=== PATIENT | female | born 1990 | race Caucasian/White ===

== ENCOUNTER 2017-12-07 00:12 | Emergency (ER) | payer OTHER ==
[2017-12-07 00:20] VITALS: BP 107/58; PULSE 68; TEMP 98.9; BMI 24.7
--- NOTE | 2017-12-07 00:20 | PDOC ---
History of Present Illness - General Chief Complaint: Respiratory Stated Complaint: "I HAVE A SINUS INFECTION" Time Seen by Provider: 12/07/17 00:20 History Source: Patient Exam Limitations: No Limitations - History of Present Illness Initial Comments: 12/07/17 00:29 This is a 27 her female comes in complaining of pain in her sinuses. Patient has a history of sinusitis in the past. She is also complaining of some ear pain and mild sore throat. Patient says she's had a low-grade fever but was afebrile here in the emergency room. Patient said that she has had some yellowish discharge from her sinuses morning. Patient denies any neck stiffness headache or neurological complaints. PAST MEDICAL HISTORY: no significant history PAST SURGICAL HISTORY: no significant history FAMILY HISTORY: no pertinant history SOCIAL HISTORY: Pt lives with family and is employed. MEDICATIONS: reviewed ALLERGIES: As per nursing notes Review of Systems General: No fevers or chills, no weakness, no weight loss HEENT: No change in vision. No sore throat,. No ear pain CardioVascular: No chest pain or shortness of breath Respiratory:No cough, or wheezing. Gastrointestinal: no nausea, vomitting, diarrhea or constipation, No rectal bleeding Genitourinary: No dysuria, hematuria, or frequency Musculoskeletal: No joint or muscle pain or swelling Neurologic: No headache, vertigo, dizziness or loss of consciousness Psychiatric: nor depression Skin: No rashes or easy bruising Endocrine: no increased thirst or abnormal weight change Allergic: no skin or latex allergy All other systems reviewed and normal GENERAL: The patient is awake, alert, and fully oriented, in no acute distress. HEENT: There is some tenderness on palpation of the maxillary sinuses, there is some mild erythema posterior oropharynx. There is no lymphadenopathy. Neck is supple EXTREMITIES: Normal range of motion, no edema. NEUROLOGICAL: Normal speech, normal gait. grossly intact PSYCH: Normal mood, normal affect. SKIN: Warm, Dry, normal turgor, no rashes or lesions noted. Assessment and plan: This is 27 her female comes in complaining of symptoms suggestive of acute acute sinusitis. Patient given azithromycin and told to get [id number] decongestants and a netti pot. Patient discharged home Past History - Past Medical History Allergies/Adverse Reactions: Allergies Allergy/AdvReac Type Severity Reaction Status Date / Time No Known Allergies Allergy Verified 02/02/13 23:49 Home Medications: Ambulatory Orders Azithromycin 250 mg PO DAILY #4 tablet 12/07/17 COPD: No Disorders: Yes (PCO,ENDOMETRISOS) - Immunization History Td Vaccination: Yes Immunization Up to Date: No - Suicide/Smoking/Psychosocial Hx Smoking Status: Yes Smoking History: Unknown if ever smoked Have you smoked in the past 12 months: Yes Number of Cigarettes Smoked Daily: 12 If you are a former smoker, when did you quit?: 03/24/16 Information on smoking cessation initiated: Yes 'Breaking Loose' booklet given: 12/07/17 Hx Alcohol Use: No Drug/Substance Use Hx: No Substance Use Type: None *Physical Exam - Vital Signs Last Vital Signs Temp Pulse Resp BP Pulse Ox 98.9 F 68 14 107/58 99 12/07/17 00:16 12/07/17 00:16 12/07/17 00:16 12/07/17 00:16 12/07/17 00:16 *DC/Admit/Observation/Transfer Diagnosis at time of Disposition: Sinusitis Qualifiers: Sinusitis location: maxillary Chronicity: acute Recurrence: recurrent Qualified Code(s): J01.01 - Acute recurrent maxillary sinusitis - Discharge Dispostion Disposition: HOME Condition at time of disposition: Good Decision to Admit order: No - Prescriptions Prescriptions: Azithromycin 250 mg PO DAILY #4 tablet - Referrals - Patient Instructions Additional Instructions: Tylenol or Motrin as needed for pain.. Get the prescription for azithromycin filled and take one tablet a day for the next 4 days you're given the first tablet today take your next tablet tomorrow night Purchase an [id number] decongestant as well as a netti pot and use as directed on the box . Return to the emergency department immediately with ANY new, persistent or worsening symptoms. Continue any medications as previously prescribed by your physician. You should follow up with your primary doctor as soon as possible regarding today's emergency department visit. . Please make sure your doctor reviews the results of your emergency evaluation. Thank you for coming to the Emergency Department today for your care. It was a pleasure to see you today. Please note that your evaluation is INCOMPLETE until you follow-up with your doctor. - Post Discharge Activity
[2017-12-07] MEDS ORDERED: AZITHROMYCIN 500 MG TABLET PO ONE (00:23)
[2017-12-07] MEDS ORDERED: AZITHROMYCIN 250 MG TABLET ONE (00:38)
== END 2017-12-07 00:36 | disposition home or self-care (01) ==
LOC: FER 00:12
DX: J01.01 Acute recurrent maxillary sinusitis (principal); F17.210 Nicotine dependence, cigarettes, uncomplicated
CPT/HCPCS: 99283-25

== ENCOUNTER 2018-12-25 00:05 | Emergency (ER) | payer OTHER | END 2018-12-25 01:01 | disposition home or self-care (01) | LOC: FER 00:05 ==

== ENCOUNTER 2019-03-05 01:16 | Emergency (ER) | payer OTHER ==
[2019-03-05 01:28] VITALS: BP 101/68; PULSE 85; TEMP 98.3; BMI 23.8
--- NOTE | 2019-03-05 01:55 | PDOC ---
History of Present Illness - General Chief Complaint: Pain Stated Complaint: TIRED,HEART RACING Time Seen by Provider: 03/05/19 01:45 History Source: Patient Exam Limitations: No Limitations - History of Present Illness Initial Comments: 03/05/19 01:49 This is a 29-year-old female who comes in complaining of fatigue and palpitations. Patient has had symptoms times several months. Patient denies any cough, congestion, chest pain, nausea vomiting or diarrhea. Patient is otherwise healthy and takes no medications. Allergies: as per nursing notes Past Medical History: none Social history: Lives with family. No smoking. No alcohol. No illicit drugs. Surgical history: None General: No fevers or chills, no weakness, no weight loss , + fatigue HEENT: No change in vision. No sore throat,. No ear pain CardioVascular: no chest discomfort. No shortness of breath, + palpitations Respiratory:No cough, or wheezing. Gastrointestinal: no nausea, vomiting, diarrhea or constipation, No rectal bleeding Genitourinary: No dysuria, hematuria, or frequency Musculoskeletal: No joint or muscle pain or swelling Neurologic: No headache, vertigo, dizziness or loss of consciousness Psychiatric: nor depression Skin: No rashes or easy bruising Endocrine: no increased thirst or abnormal weight change Allergic: no skin or latex allergy All other systems reviewed and normal Exam: General: Well-nourished well-developed individual, no acute distress HEENT: Throat: Normal, tonsils normal, no erythema or exudate Neck: Supple, no meningeal signs, no lymphadenopathy Eyes::Pupils equal reactive and round, extraocular motion intact Chest: Nontender to palpation Cardiac: S1-S2 normal, regular rate and rhythm, no murmurs rubs or gallops Respiratory: Lungs clear to auscultation bilateral Abdomen: Soft, nondistended, normal bowel sounds, there is no tenderness on palpation diffusely Extremities: Warm, dry, no cyanosis, clubbing, or edema Skin: No rashes Neuro: Alert and oriented x3, CN II - XII intact, nonfocal exam with normal strength, normal sensation, normal reflexes, normal gait, Psych: Normal mood and affect Assessment and plan: This is a 21-year-old female palpitations and fatigue. Patient had an EKG done that was normal sinus rhythm at a rate of [address] -T wave changes. Patient was reassured and discharged will follow-up with her primary care doctor. Past History - Past Medical History Allergies/Adverse Reactions: Allergies Allergy/AdvReac Type Severity Reaction Status Date / Time No Known Allergies Allergy Verified 03/05/19 01:19 Home Medications: Ambulatory Orders NK [No Known Home Medication] 03/05/19 COPD: No Disorders: Yes (PCO,ENDOMETRISOS) - Immunization History Td Vaccination: Yes Immunization Up to Date: No - Suicide/Smoking/Psychosocial Hx Smoking Status: Yes Smoking History: Current every day smoker Have you smoked in the past 12 months: Yes Number of Cigarettes Smoked Daily: 20 If you are a former smoker, when did you quit?: 03/24/16 Information on smoking cessation initiated: Yes 'Breaking Loose' booklet given: 12/25/18 Hx Alcohol Use: Yes (DAILY DRINK) Drug/Substance Use Hx: No Substance Use Type: None *Physical Exam - Vital Signs Last Vital Signs Temp Pulse Resp BP Pulse Ox 98.3 F 85 16 101/68 100 03/05/19 01:24 03/05/19 01:24 03/05/19 01:24 03/05/19 01:24 03/05/19 01:24 *DC/Admit/Observation/Transfer Diagnosis at time of Disposition: Palpitations - Discharge Dispostion Disposition: HOME Condition at time of disposition: Stable Decision to Admit order: No - Referrals - Patient Instructions Additional Instructions: Try to reduce the stress in your life. Return to the emergency department immediately with ANY new, persistent or worsening symptoms. Continue any medications as previously prescribed by your physician. You should follow up with your primary doctor as soon as possible regarding today's emergency department visit. . Please make sure your doctor reviews the results of your emergency evaluation. Thank you for coming to the Emergency Department today for your care. It was a pleasure to see you today. Please note that your evaluation is INCOMPLETE until you follow-up with your doctor. - Post Discharge Activity
--- NOTE | 2019-03-05 09:38 | EKG ---
Test Reason : Blood Pressure : / mmHG Vent. Rate : 072 BPM Atrial Rate : 072 BPM P-R Int : 118 ms QRS Dur : 086 ms QT Int : 388 ms P-R-T Axes : 000 076 056 degrees QTc Int : 424 ms NORMAL SINUS RHYTHM NORMAL ECG NO PREVIOUS ECGS AVAILABLE Confirmed by Shalom Cooper MD ([id number]) on 03/05/2019 9:38:23 AM Referred By: VERONICA LEON Confirmed By:Shalom Cooper MD
== END 2019-03-05 02:09 | disposition home or self-care (01) ==
LOC: FER 01:16
DX: R00.2 Palpitations (principal)
CPT/HCPCS: 93005; 99281-25